=== PATIENT | male | born 1950 | race African-American/Black ===

== ENCOUNTER 2018-08-20 12:50 | Inpatient (IN) | payer MEDICARE ==
--- NOTE | 2018-08-17 14:14 | Diagnostic Imaging Report ---
EXAMINATION: PA and lateral views of the chest. COMPARISON: None CLINICAL HISTORY: Preoperative study for urology procedure. DISCUSSION: Lines/tubes: None. Lungs: The lungs are well inflated and clear. There is no evidence of pneumonia or pulmonary edema. Pleura: There is no pleural effusion or pneumothorax. Heart and mediastinum: The cardiomediastinal silhouette is normal. Bones and soft tissues: No acute bony abnormalities. IMPRESSION: No acute cardiopulmonary abnormalities. Signed by: Dr. Bc Price M.D. on 08/17/2018 2:11 PM
[~2018-08-20 12:50] MED LIST: ATORVASTATIN CA10 MG PO; CLOPIDOGREL75 MG PO; FINASTERIDE5 MG PO; FLOMAX0.4 MG PO; METOPROLOL TART25 MG PO; VITAMIN B-121000 MCG PO
[2018-08-20] MEDS ORDERED: SODIUM CHLORIDE 0.9% 1000ML 1,000 ML ONE (13:04)
[2018-08-20] MEDS ORDERED: CLINDAMYCIN 300MG 50 ML IV ONE (13:04)
[2018-08-20] MEDS ORDERED: PIPER-TAZ 3.375 GM 50 ML ONE (13:04)
[2018-08-20] MEDS ORDERED: GENTAMICIN 80MG/NS 100 ML 200 ML IV ONE (13:04)
[2018-08-20] MEDS ORDERED: B&O 60MG R/S 60 MG SUPP PR ONE (13:30)
[2018-08-20] MEDS ORDERED: IOPAMIDOL 610MG/1ML 300 MG/ML VIAL IV ONE (13:30)
[2018-08-20] MEDS ORDERED: PROPOFOL IV EMULSION 10 MG/ML 20 ML VIAL ONE (13:39)
[2018-08-20] MEDS ORDERED: EPHEDRINE SULFATE INJ 50 MG/10 ML SYR ONE (13:39)
[2018-08-20] MEDS ORDERED: SEVOFLURANE INHAL SOLN 250 ML PEN BTL ONE (13:39)
[2018-08-20] MEDS ORDERED: LIDOCAINE HCL 2% LOCAL INJ 5 ML SDV VIAL INJ ONE (13:39)
[2018-08-20] MEDS ORDERED: DEXAMETHASONE SOD PHOS INJ 4 MG/ML VIAL ONE (13:39)
[2018-08-20] MEDS ORDERED: ONDANSETRON HCL INJ 2MG/ML 2ML 2 MG/ML VIAL ONE (13:39)
[2018-08-20 13:41] LABS: BASOPHILS % 0.2 % (0.0-1.0); HEMATOCRIT 39.9 % (38.2-49.6); HEMOGLOBIN 14.3 g/dL (14.0-18.0); LYMPHOCYTES # (AUTO) 0.7 (1.0-3.2); MEAN CORPUSCULAR HEMOGLOBIN 28.5 pg (28-32); MEAN CORPUSCULAR HGB CONC 35.8 g/dL (31-35); MEAN CORPUSCULAR VOLUME 79.5 fL (81-99); MONOCYTES # (AUTO) 0.5 (0.2-0.8); MONOCYTES % 9.5 % (4.4-11.3); NEUTROPHILS # (AUTO) 4.3 (2.1-6.9); NEUTROPHILS % 77.6 % (38.7-80.0); PLATELET COUNT 230 x10e3/uL (140-360); RED BLOOD COUNT 5.02 x10e6/uL (4.3-5.7); RED CELL DISTRIBUTION WIDTH 14.2 % (11.7-14.4)
[2018-08-20] MEDS: D5.45%NS/KCL 20MEQ 1,000 ML IV SCH (16:36)
[2018-08-20] MEDS ORDERED: BELLADONNA/OPIUM 30 MG SUPP RC PRN (16:45)
[2018-08-20] MEDS ORDERED: DIPHENHYDRAMINE HCL 25 MG CAP PO PRN (16:45)
[2018-08-20] MEDS ORDERED: ONDANSETRON HCL INJ 2MG/ML 2ML 2 MG/ML VIAL IV PRN (16:45)
[2018-08-20] MEDS ORDERED: FENTANYL CITRATE/PF 100MCG/2 ML INJ ONE ×2 (16:57→19:22)
--- OUTSIDE RECORDS SUMMARY | 2018-08-20 17:01 | XMS REPORT ---
Author Author [facility] Address Unknown Phone Unavailable Care Team Providers Care Salon Coordinator Name Role Phone ELENITA ROWLEY Unavailable Unavailable Problems This patient has no known problems. Allergies, Adverse Reactions, Alerts This patient has no known allergies or adverse reactions. Medications This patient has no known medications. Results Test Description Test Time Test Comments Text Results Atomic Results Result Comments CHEST 2 VIEWS 2018-08-17 14:09:00 [facility] [address] [address] Patient Name: JM ROBERSON III MR #: [id number] : 1950 Age/Sex: 67/M Req #: [id number] Adm Physician: Ordered by: ELENITA ROWLEY MD Report #: [id number] Location: OR Room/Bed: Procedure: [id number] DX/CHEST 2 VIEWS Exam Date: 08/17/18 Exam Time: 1330 REPORT STATUS: Signed EXAMINATION: PA and lateral views of the chest. MICHAELA RISON: None CLINICAL HISTORY: Preoperative study for urology procedure. DISCUSSION: Lines/tubes: None. Lungs: The lungs are well inflated and clear. There is no evidence of pneumonia or pulmonary edema. Pleura: There is no pleural effusion or pneumothorax. Heart and mediastinum: The cardiomediastinal silhouette is normal. Bones and soft tissues: No acute bony abnormalities. IMPRESSION: No acute cardiopulmonary abnormalities. Signed by: Dr. Paco Rogel M.D. on 08/17/2018 2:11 PM Dictated By: PACO ROGEL MD [id number] Transcribed By: CAMERON on 08/17/18 1411 COPY TO: ELENITA ROWLEY MD
[2018-08-20] MEDS ORDERED: HYDROMORPHONE 2MG/ML 2 MG/ML ML ONE (17:07)
[2018-08-20] MEDS ORDERED: MORPHINE SULFATE INJ 4 MG/ML INJ 1ML ONE (17:33)
--- NOTE | 2018-08-20 18:03 | NUR ---
Pt received from PACU s/p TURP. Alert and oriented x3, with 3 way alba draining cranberry colored urine. Saline lock to right hand with fluid infusing. Oriented to staff and surroundings. Encouraged to press call draper if help needed. Pt verbalized understanding of teaching. Will monitor
[2018-08-20] MEDS: DOCUSATE SODIUM 100 MG CAP PO SCH (18:43)
[2018-08-20] MEDS: PHENAZOPYRIDINE HCL 100 MG TAB PO SCH (18:43)
[2018-08-20] MEDS: B&O 60MG R/S 60 MG SUPP PR PRN (18:43)
[2018-08-20 18:50] LABS: BASOPHILS % 0.2 % (0.0-1.0); HEMATOCRIT 39.3 % (38.2-49.6); HEMOGLOBIN 13.9 g/dL (14.0-18.0); LYMPHOCYTES # (AUTO) 0.3 (1.0-3.2); LYMPHOCYTES % 5.3 % (18.0-39.1); MEAN CORPUSCULAR HEMOGLOBIN 28.3 pg (28-32); MEAN CORPUSCULAR HGB CONC 35.4 g/dL (31-35); MEAN CORPUSCULAR VOLUME 79.9 fL (81-99); MONOCYTES # (AUTO) 0.2 (0.2-0.8); MONOCYTES % 3.9 % (4.4-11.3); NEUTROPHILS # (AUTO) 5.2 (2.1-6.9); NEUTROPHILS % 89.6 % (38.7-80.0); PLATELET COUNT 198 x10e3/uL (140-360); RED BLOOD COUNT 4.92 x10e6/uL (4.3-5.7); RED CELL DISTRIBUTION WIDTH 14.2 % (11.7-14.4)
[2018-08-20 19:07] LABS: ANION GAP 17.3 mmol/L (8-16); BLOOD UREA NITROGEN 22 mg/dL (7-26); BUN/CREATININE RATIO 18 (6-25); CALCIUM 8.6 mg/dL (8.4-10.2); CARBON DIOXIDE 23 mmol/L (22-29); CHLORIDE 107 mmol/L (98-107); CREATININE, SERUM 1.19 mg/dL (0.72-1.25); EST GLOMERULAR FILTRATION RATE > 60 ML/MIN (60-); GLUCOSE 100 mg/dL (74-118); POTASSIUM 3.3 mmol/L (3.5-5.1); SODIUM 144 mmol/L (136-145)
--- NOTE | 2018-08-20 19:34 | NUR ---
Pt resting comfortably in bed. Handoff given to oncoming nurse.
[2018-08-20 20:00] VITALS: BP 130/74
[2018-08-20] MEDS: ACETAMINOPHEN/CODEINE 300MG - 30MG TAB PO PRN (21:15)
[2018-08-20] MEDS: PIPER-TAZ 3.375 GM 50 ML IV SCH (21:15)
--- NOTE | 2018-08-20 21:44 | Diagnostic Imaging Report ---
Transrectal ultrasound of the prostate, ultrasound guidance. TECHNIQUE: Sonographic guidance was provided to Dr. Juan Aguilar for the purposes of a transrectal prostate biopsy. HISTORY: Elevated PSA FINDINGS: The seminal vesicles are present and unremarkable. The gland size measures 33.33 cubic cm. The peripheral zone is homogeneous without focal nodules. The transition zone demonstrates a BPH nodule in the left lobe. IMPRESSION: As above. Signed by: Dr. Rasheeda Sarmiento MD on 08/20/2018 9:41 PM
[2018-08-21] VITALS (10 sets, daily range): BP systolic 107–176; BP diastolic 62–101
[2018-08-21] MEDS: D5.45%NS/KCL 20MEQ 1,000 ML IV SCH ×3 (00:03→20:52)
[2018-08-21] MEDS: B&O 60MG R/S 60 MG SUPP PR PRN ×2 (03:15→13:20)
[2018-08-21] MEDS: PIPER-TAZ 3.375 GM 50 ML IV SCH ×3 (05:24→21:55)
--- NOTE | 2018-08-21 06:00 | NUR ---
Patient c/o severe bladder spasms, urine appears light pink w/ small blood clots, bleeding noted around penile area, attempted to irrigate alba catheter, resistance was noted, Dr. Aguilar informed on patient status
[2018-08-21 06:29] LABS: ANION GAP 14.5 mmol/L (8-16); CALCIUM 8.5 mg/dL (8.4-10.2); CREATININE, SERUM 1.48 mg/dL (0.72-1.25); POTASSIUM 3.5 mmol/L (3.5-5.1)
[2018-08-21 06:38] LABS: BASOPHILS % 0.1 % (0.0-1.0); EOSINOPHILS # (AUTO) 0.2 (0.0-0.4); HEMATOCRIT 36.5 % (38.2-49.6); HEMOGLOBIN 12.9 g/dL (14.0-18.0); LYMPHOCYTES # (AUTO) 0.5 (1.0-3.2); LYMPHOCYTES % 5.8 % (18.0-39.1); MEAN CORPUSCULAR HGB CONC 35.3 g/dL (31-35); MEAN CORPUSCULAR VOLUME 79.2 fL (81-99); MONOCYTES # (AUTO) 0.6 (0.2-0.8); MONOCYTES % 6.6 % (4.4-11.3); NEUTROPHILS # (AUTO) 7.9 (2.1-6.9); NEUTROPHILS % 85.2 % (38.7-80.0); PLATELET COUNT 202 x10e3/uL (140-360); RED BLOOD COUNT 4.61 x10e6/uL (4.3-5.7)
--- NOTE | 2018-08-21 07:11 | NUR ---
pt alert resp even and unlabored at this time no distress noted, pt able to make needs known,no c/o pain when asked, occasional bladder spasms Dr. Aguilar aware, CBI in place, will cont to monitor, pt call light in reach.
[2018-08-21] MEDS: ACETAMINOPHEN/CODEINE 300MG - 30MG TAB PO PRN ×2 (07:16→13:03)
[2018-08-21 08:15] LABS: LYMPHOCYTES % (MANUAL) 5 % (19-48); MONOCYTES % (MANUAL) 7 % (3.4-9.0); NEUTROPHILS % (MANUAL) 88 % (40-74); PLATELET ESTIMATE ADEQUATE; PLATELET MORPHOLOGY COMMENT NORMAL; RBC MORPHOLOGY COMMENT NORMAL
[2018-08-21] MEDS ORDERED: HYDRALAZINE HCL 25 MG TAB PO PRN (09:15)
[2018-08-21] MEDS ORDERED: AMLODIPINE BESYLATE 5 MG TAB PO ONE (09:15)
[2018-08-21] MEDS: METOPROLOL TARTRATE 25 MG TAB PO SCH ×2 (09:28→17:59)
[2018-08-21] MEDS: PHENAZOPYRIDINE HCL 100 MG TAB PO SCH ×3 (09:28→17:59)
[2018-08-21] MEDS: OXYBUTYNIN CHLORIDE 5 MG TAB PO SCH ×3 (09:28→20:52)
[2018-08-21] MEDS: DOCUSATE SODIUM 100 MG CAP PO SCH ×2 (09:28→16:05)
--- NOTE | 2018-08-21 09:37 | History and Physical ---
PRIMARY CARE PHYSICIAN: Dr. Magui Gutierrez. SURGEON: Dr. Juan Aguilar. The patient is status post TURP procedures. HISTORY: A 67-year-old male status post TURP, cystoscopy retrograde done by Dr. Juan Aguilar. The patient is admitted for postoperative care. He is otherwise stable. No chest pain, no shortness of breath. PAST MEDICAL HISTORY: Enlarged prostate status post TURP and prostate biopsy. Urinary retention. Hypertension. Coronary artery disease. History of CVA with left-sided residual weakness. SOCIAL HISTORY: The patient does not smoke or use alcohol. No recreational drug use. ALLERGIES: NO KNOWN ALLERGIES. HOME MEDICATIONS: Lipitor, B12, Plavix, finasteride, metoprolol tartrate, Flomax. PHYSICAL EXAMINATION: VITAL SIGNS: Temperature is 100, blood pressure 176/89, pulse rate 96, respirations 18. GENERAL: The patient is not in acute distress. He is awake. HEENT: Normocephalic, atraumatic. Sclerae anicteric. NECK: Supple grossly. PULMONARY: Diminished breath sounds without any wheezing or rales. CARDIOVASCULAR: S1, S2. Regular rate and rhythm. ABDOMEN: Soft. Status post TURP. Hartmann catheter in place. EXTREMITIES: No cyanosis or edema. NEUROLOGIC: No gross focal deficit. LABORATORY DATA: Sodium is 143, potassium 3.5, chloride 110, bicarb 22, BUN 23, creatinine 1.48, glucose 112. WBC is 9.2, hemoglobin 12.9, hematocrit 36.5, platelets is 202. IMPRESSION: 1. Status post TURP for urinary retention and microscopic hematuria with increase in PSA. 2. Multiple chronic baseline problems. PLAN: Home medication resumed except for aspirin and Plavix. Continue with physical therapy. Postoperative care. Continue with irrigation of the urinary bladder. We will check the patient's lab work. MD CURRY Hi/JACK /[id number]
--- NOTE | 2018-08-21 13:58 | NUR ---
CM SPOKE TO PATIENT AND PATIENT EX JIA REGARDING DISCHARGE PLAN AND PLAN FO CARE. PATIENT AWARE AND PATIENT AND PATIENT EX- AGREE TO HAVE HOME HEALTH SERVICES FOR SN EVAL AND QUILES CARE. PATIENT AND PATIENT EX- GIVEN CHOICES AT BEDSIDE. PATIENT AND PATIENT REQUESTED [facility]. CHOICE LETTER SIGNED BY EX- DESIGNATED BY PATIENT DUE TO WEAKNESS AND UNABLE TO SIGN. CM CALLED [facility] FOR FAX NUMBER, NO ANSWER; CM LM TO RECEIVE CALL FOR FAX INFORMATION SO THEY CAN RUN PATIENT BENEFITS. PATIENT AND PATIENT EX AWARE AND AGREE TO PAY OUT OF POCKET FEES IF HOME HEALTH IS NOT IN SERVICE. THEY ARE INFORMED IF THEY CHANGE THEIR MINDS AND THEY ARE DISCHARGED, THEY CAN GO TO PCP FOR ORDER. [facility] (P)[phone] (F) PENDING RETURN CALL FOR FAX LIAISON: ELVIN DORSEY
--- NOTE | 2018-08-21 19:25 | NUR ---
report given to oncoming nurse, pt stable.
[2018-08-21] MEDS ORDERED: ATORVASTATIN 10 MG TAB PO SCH (21:00)
[2018-08-22] VITALS: BP 110/74
[2018-08-22 04:00] VITALS: BP_SYST 136
[2018-08-22] MEDS: PIPER-TAZ 3.375 GM 50 ML IV SCH ×2 (05:29→14:30)
[2018-08-22 06:12] LABS: BASOPHILS % 0.2 % (0.0-1.0); EOSINOPHILS # (AUTO) 0.2 (0.0-0.4); EOSINOPHILS % 3.1 % (0.0-6.0); HEMATOCRIT 34.1 % (38.2-49.6); HEMOGLOBIN 11.9 g/dL (14.0-18.0); LYMPHOCYTES # (AUTO) 0.7 (1.0-3.2); LYMPHOCYTES % 12.2 % (18.0-39.1); MEAN CORPUSCULAR HEMOGLOBIN 27.9 pg (28-32); MEAN CORPUSCULAR HGB CONC 34.9 g/dL (31-35); MONOCYTES # (AUTO) 0.6 (0.2-0.8); MONOCYTES % 9.6 % (4.4-11.3); NEUTROPHILS # (AUTO) 4.3 (2.1-6.9); NEUTROPHILS % 74.4 % (38.7-80.0); PLATELET COUNT 187 x10e3/uL (140-360); RED BLOOD COUNT 4.26 x10e6/uL (4.3-5.7); RED CELL DISTRIBUTION WIDTH 14.1 % (11.7-14.4)
[2018-08-22 06:34] LABS: ANION GAP 12.5 mmol/L (8-16); BLOOD UREA NITROGEN 20 mg/dL (7-26); BUN/CREATININE RATIO 16 (6-25); CALCIUM 8.6 mg/dL (8.4-10.2); CARBON DIOXIDE 24 mmol/L (22-29); CHLORIDE 110 mmol/L (98-107); CREATININE, SERUM 1.28 mg/dL (0.72-1.25); EST GLOMERULAR FILTRATION RATE > 60 ML/MIN (60-); GLUCOSE 93 mg/dL (74-118); POTASSIUM 3.5 mmol/L (3.5-5.1); SODIUM 143 mmol/L (136-145)
--- NOTE | 2018-08-22 07:10 | NUR ---
PT RESTING IN BED COMFORTABLY [id number] PT DENIES ANY ACTIVE PAIN, STATES DISCOMFORT TO URETHRA (BURNING) PT HAS A QUILES CATH 3WAY ON CBI. PENIS AREA SHOWING MINIMAL LEAKING OF PINK TINGED URINE TOWEL LOCATED ON PENIS AREA FOR LEAKAGE COLLECTION PT QUILES CATH BAG DRAINING CLEAR YELLOW URINE. NO CLOTS NOTED (DECREASED CBI RATE) PT HAS IV FLUIDS TO THE RIGHT HAND 20 WITH [id number] AT 125CC.HR. SITE IS CLEAN AND DRY PT IS ON RA . NO SOB NOTED SED AND COMPRESSION STOCKINGS PRESENT WILL CONTINUE TO MONITOR PT CLOSELY, SIDE RAILX2, BED WHEELS LOCKED, CALL LIGHT IS WITHIN EASY REACH, INSTRUCTED TO CALL FOR ASSISTANCE IF NEEDED
[2018-08-22 08:03] VITALS: BP 113/67
[2018-08-22 08:36] VITALS: BP 113/67
[2018-08-22] MEDS: METOPROLOL TARTRATE 25 MG TAB PO SCH ×2 (08:58→16:37)
[2018-08-22] MEDS: DOCUSATE SODIUM 100 MG CAP PO SCH ×2 (08:58→16:37)
[2018-08-22] MEDS: OXYBUTYNIN CHLORIDE 5 MG TAB PO SCH ×2 (08:58→15:30)
[2018-08-22] MEDS: AMLODIPINE BESYLATE 5 MG TAB PO SCH ×2 (08:58→16:38)
[2018-08-22] MEDS: PHENAZOPYRIDINE HCL 100 MG TAB PO SCH ×3 (08:59→16:38)
[2018-08-22] MEDS ORDERED: FINASTERIDE 5 MG TAB PO SCH (09:00)
[2018-08-22] MEDS ORDERED: TAMSULOSIN HCL 0.4 MG CAP PO SCH (09:00)
[2018-08-22] MEDS ORDERED: CYANOCOBALAMIN 1,000 MCG TAB PO SCH (09:00)
--- NOTE | 2018-08-22 09:38 | NUR ---
CM SPOKE TO PATIENT EX- / POA JIA ROBERSON AND PATIENT REGARDING HOME HEALTH COMPANY THEY HAVE CHOSEN ARE NOT IN NETWORK FOR HOME HEALTH. THEY DECIDED TO GO THROUGH INSURANCE WITH [facility] UPON DISCHARGE AND USE [facility] PROVIDER CARE AT A LATER DATE. [facility] WAS THEIR NUMBER TWO CHOICE ON CHOICE LETTER. CLINICAL SENT TO [facility]. THEY ARE ACCEPTED AND WILL RECEIVE CARE DAY AFTER DISCHARGE. [facility] (P) [phone] (F) [phone] LIAISON: JEFFERY SCHAEFFER
--- NOTE | 2018-08-22 09:41 | NUR ---
DISCHARGE DISPOSITION: PATIENT DISCHARGING HOME WITH HOME HEALTH SERVICES WITH THE FOLLOWING HOME HEALTH COMPANY FOR CATHETER MANAGEMENT,SN EVAL AND PT/OT SERVICES: [facility] (P) [phone] (F) [phone] LIAISON: JEFFERY SCHAEFFER
[2018-08-22] MEDS: D5.45%NS/KCL 20MEQ 1,000 ML IV SCH (10:58)
[2018-08-22 12:01] VITALS: BP 138/75
[2018-08-22] MEDS ORDERED: ONDANSETRON HCL 4 MG ORAL DISINTEGRATING TAB PO PRN (12:45)
--- NOTE | 2018-08-22 14:23 | NUR ---
QUILES DC AT THIS TIME . PT DUE TO VOID . SERIAL URINES STARTED
[2018-08-22] MEDS: ACETAMINOPHEN/CODEINE 300MG - 30MG TAB PO PRN (14:31)
--- NOTE | 2018-08-22 15:50 | NUR ---
EDUCATED ABOUT IMM, SIGNED, FILED IN CHART, WITH COPY LEFT WITH FAMILY AT BEDSIDE.
[2018-08-22 16:00] VITALS: BP 136/70
[2018-08-22] MEDS ORDERED: TYLENOL WITH C1 EACH PO (17:48)
[2018-08-22] MEDS ORDERED: LEVAQUIN500 MG PO (17:49)
--- NOTE | 2018-08-22 18:20 | NUR ---
PT OFF UNIT TO HOME
--- NOTE | 2018-09-17 02:41 | Operative Report ---
DATE OF PROCEDURE: 08/20/2018 SURGEON: Juan Aguilar MD PREOPERATIVE DIAGNOSES: 1. Obstructive benign prostatic hypertrophy. 2. Urinary retention. 3. Elevated PSA. POSTOPERATIVE DIAGNOSES: 1. Obstructive benign prostatic hypertrophy. 2. Urinary retention. 3. Elevated PSA. OPERATION PERFORMED: 1. Transrectal sonography interpretation. 2. Interpretation for ultrasonographic guidance for needle biopsies. 3. Transrectal needle biopsies of the prostate (separate procedure performed for the elevated PSA). 4. Cystourethroscopy with bilateral ureteral catheterization and retrograde ureteropyelography (separately performed to evaluate the upper tract in light of the urinary retention. 5. Interpretation of retrograde ureteropyelography. 6. Supervision of fluoroscopy, no radiologist present. 7. Cystourethroscopy with staged transurethral resection of the prostate utilizing the plasma button electrode. ANESTHESIA: General. COMPLICATIONS: None. CLINICAL SUMMARY: Yan Rosa III is a 67-year-old man with a history of urinary retention. His postvoid residual was over 150 mL by urodynamic study. The patient has had this symptomatology. This was despite alpha-jas medication. He was brought for the above procedures. He is aware of the risks of bleeding, infection, injury to adjacent structures, need for additional procedures, and elected to proceed. OPERATIVE PROCEDURE IN DETAIL: Informed consent was verified. Yan Rosa III was properly identified, taken to the operating room, placed on the cystoscopy table in supine position. Anesthesia was uneventfully begun. The patient was then carefully and gently repositioned in the dorsal lithotomy position with all pressure points well padded. The ultrasound probe was placed in the patient's rectum and sonography was performed. Interpretation of prostate ultrasonography, real-time ultrasonography revealed diffuse calcifications. In both the transition and peripheral zones, there was a heterogeneity throughout the entire prostate. The prostate capsule was smooth. The seminal vesicles were unremarkable. The prostate size was estimated at 33 mL, but this was believed to be an underestimation due to poor calculation of the patient's prostate length. With ultrasonographic guidance, needle biopsies of the prostate were taken. A total of 2 biopsies were taken at each of 6 places. These were sent separately in containers labeled right versus left and base versus mid versus apex. The patient's genitalia were then prepared and draped in usual sterile fashion. The cystoscope sheath with the visual obturator in place was atraumatically inserted into the patient's urethra and was guided unremarkably. Distal urethra through the sphincteric region significant for mucosal erythema, most likely due to chronic Hartmann trauma and irritation. We entered the patient's prostate bed, which was significant for trilobar prostatic hypertrophy with visual obstruction. We entered the patient's bladder, which exhibited grade 3 trabeculations with cellule formations throughout, possibly grade 4 trabeculations with early diverticular formation. No suspicious lesions were identified. A ureteral catheter was used to cannulate each ureter and retrograde ureteral pyelograms were performed. Interpretation of retrograde ureteropyelography contrast was instilled in retrograde fashion bilaterally. There were no tumors, no stones, no diverticula. Bilateral J hooking was noted. Unobstructed drainage was observed fluoroscopically. The cystoscope was withdrawn. Atraumatically, we placed the continuous-flow resectoscope sheath. We then proceeded with performing a transurethral resection of the prostate utilizing a plasma button electrode. First, we eliminated the median lobe and then we worked from the bladder neck to maneuver past the verumontanum and vaporized down the surgical capsule. Hemostasis was obtained with pinpoint electrocautery. As we performed this resection, we released rather significant amount of secretions that were imbedded within the patient's prostate bed. This was consistent with chronic prostatitis. The resectoscope was withdrawn and Hartmann catheter was placed. It was irrigated to and fro to ensure it worked properly. A belladonna and opium suppository were placed revealing a 40 g prostate, smooth and non-fluctuant without any nodules. The patient was then uneventfully reversed from anesthesia and taken to recovery room in stable condition. Explicit postoperative instructions were given. We will proceed with routine postoperative care and of course ongoing Urological followup. Juan Aguilar MD [place]/MODL /[id number] cc: Magui Gutierrez MD
== END 2018-08-22 18:20 | disposition home health service (06) | DRG 713 ==
LOC: OR 12:50 → MED/SURG 16:38
PROVIDERS: ADMIT Internal Medicine; ATTEND Internal Medicine
PROC: 0T788ZZ Dilation of Bilateral Ureters, Via Natural or Artificial Opening Endoscopic (ICD-10-PCS; 2018-08-20)
PROC: BT141ZZ Fluoroscopy of Kidneys, Ureters and Bladder using Low Osmolar Contrast (ICD-10-PCS; 2018-08-20)
PROC: 0VB08ZX Excision of Prostate, Via Natural or Artificial Opening Endoscopic, Diagnostic (ICD-10-PCS; principal; 2018-08-20 14:30)
PROC: 0V508ZZ Destruction of Prostate, Via Natural or Artificial Opening Endoscopic (ICD-10-PCS; 2018-08-20 14:30)
DX: N40.1 Benign prostatic hyperplasia with lower urinary tract symptoms (principal); I69.354 Hemiplegia and hemiparesis following cerebral infarction affecting left non-dominant side; N17.9 Acute kidney failure, unspecified; R33.8 Other retention of urine; R35.1 Nocturia; I10 Essential (primary) hypertension; E78.5 Hyperlipidemia, unspecified; E78.00 Pure hypercholesterolemia, unspecified; I25.10 Atherosclerotic heart disease of native coronary artery without angina pectoris; N32.81 Overactive bladder; N39.41 Urge incontinence
CPT/HCPCS: 36415; 71046; 74420; 76872; 76998; 80048; 83735; 85025; 88305; 93005; 97139; J1100; J1580; J2001; J2270; J2405; J2543; J3010; J7030